=== PATIENT | male | born 1965 | race African-American/Black ===

== ENCOUNTER 2018-01-16 11:56 | Emergency (ER) | payer MEDICAID, OTHER ==
[~2018-01-16] VITALS: Ht 165.1 cm; Wt 72.0 kg
[2018-01-16 14:25] VITALS: BP 121/69
== END 2018-01-16 15:16 | disposition home or self-care (01) ==
LOC: ER 13:07
DX: S16.1XXA Strain of muscle, fascia and tendon at neck level, initial encounter (principal); S46.912A Strain of unspecified muscle, fascia and tendon at shoulder and upper arm level, left arm, initial encounter; X58.XXXA Exposure to other specified factors, initial encounter; Y93.9 Activity, unspecified; Y92.9 Unspecified place or not applicable; R03.0 Elevated blood-pressure reading, without diagnosis of hypertension; Z72.0 Tobacco use; F12.90 Cannabis use, unspecified, uncomplicated
CPT/HCPCS: 73030; 99284

== ENCOUNTER 2018-03-21 09:57 | Emergency (ER) | payer OTHER ==
[~2018-03-21] VITALS: Ht 170.2 cm; Wt 73.0 kg
[2018-03-21 12:55] VITALS: BP 123/63
[2018-03-21] MEDS ORDERED: IBUPROFEN 800MG TABLET PO ONE (13:00)
== END 2018-03-21 12:56 | disposition home or self-care (01) ==
LOC: ER 09:57
DX: S80.11XA Contusion of right lower leg, initial encounter (principal); F12.10 Cannabis abuse, uncomplicated; Z98.49 Cataract extraction status, unspecified eye; X58.XXXA Exposure to other specified factors, initial encounter; Y93.89 Activity, other specified; Y92.89 Other specified places as the place of occurrence of the external cause; Y99.8 Other external cause status
CPT/HCPCS: 99282; Z7610

== ENCOUNTER 2022-11-12 16:52 | Emergency (ER) | payer OTHER ==
[~2022-11-12] VITALS: Ht 172.7 cm; Wt 71.0 kg
[2022-11-12 17:46] VITALS: BP 134/86
[2022-11-12] MEDS ORDERED: IBUPROFEN 600MG TABLET PO STA (17:46)
[2022-11-12] MEDS ORDERED: IBUP-2029 MT (20:04)
== END 2022-11-13 06:20 | disposition home or self-care (01) ==
LOC: ER 16:52
DX: S09.90XA Unspecified injury of head, initial encounter (principal); F12.90 Cannabis use, unspecified, uncomplicated; W19.XXXA Unspecified fall, initial encounter; Y93.89 Activity, other specified; Y92.89 Other specified places as the place of occurrence of the external cause; Y99.8 Other external cause status
CPT/HCPCS: 99284

== ENCOUNTER 2022-11-22 09:07 | Emergency (ER) | payer MEDICAID, OTHER ==
[~2022-11-22] VITALS: Ht 172.7 cm; Wt 69.0 kg
[~2022-11-22 09:07] MED LIST: IBUP-2029 MT
[2022-11-22 09:45] VITALS: BP 160/98
[2022-11-22] MEDS ORDERED: METHOCARBAMOL 750MG TABLET PO SCH (09:45)
[2022-11-22] MEDS ORDERED: ACETAMINOPHEN 325MG TABLET PO ONE (09:45)
[2022-11-22] MEDS ORDERED: KETOROLAC 60MG/2ML VIAL IM ONE (09:45)
[2022-11-22] MEDS ORDERED: LIDOCAINE 5% PATCH TOP SCH (09:45)
[2022-11-22] MEDS ORDERED: METH-653 MT (11:33)
[2022-11-22] MEDS ORDERED: TOPUD PO (11:33)
[2022-11-22] MEDS ORDERED: IBUP-2028 MT (11:33)
[2022-11-22] MEDS ORDERED: LIDO1ADH23 TP (11:33)
== END 2022-11-22 11:50 | disposition home or self-care (01) ==
LOC: ER 09:07
DX: R51.9 Headache, unspecified (principal); S16.1XXA Strain of muscle, fascia and tendon at neck level, initial encounter; F12.10 Cannabis abuse, uncomplicated; W18.30XA Fall on same level, unspecified, initial encounter; Y93.89 Activity, other specified; Y92.89 Other specified places as the place of occurrence of the external cause; Y99.8 Other external cause status
CPT/HCPCS: 96372; 99283; J1885; Z7610